=== PATIENT | female | born 1945 | race Caucasian/White ===

== ENCOUNTER 2021-01-21 15:54 | Observation (INO) | payer OTHER ==
[~2021-01-21] VITALS: Ht 180.3 cm; Wt 78.0 kg
[2021-01-21 17:10] LABS: HEMOGLOBIN 10.9 gm/dl (12.3-15.3); RED BLOOD COUNT 3.63 M/UL (4.00-5.10); WHITE BLOOD COUNT 8.8 K/UL (4.5-11.0)
[2021-01-21 17:30] LABS: BUN/CREATININE RATIO 29 (0-10)
[2021-01-22 04:13] LABS: BUN/CREATININE RATIO 17 (0-10)
[2021-01-22] MEDS ORDERED: ELIQUIS5 MG PO (10:14)
[2021-01-22] MEDS ORDERED: LOPRESSOR 50 MG50 MG PO (10:15)
[2021-01-22] MEDS ORDERED: ATORVASTATIN CA80 MG PO (10:16)
[2021-01-22] MEDS ORDERED: VITAMIN D31250 MCG PO (10:27)
[2021-01-22] MEDS ORDERED: VITAMIN B-121000 MC3 PO (10:28)
[2021-01-22] MEDS ORDERED: COLACE100 MG PO (10:28)
[2021-01-22] MEDS ORDERED: OXYCODONE HCL5 MG PO (10:29)
[2021-01-22] MEDS ORDERED: MIRALAX17 GM PO (10:29)
[2021-01-22 14:05] LABS: HEMOGLOBIN 10.1 gm/dl (12.3-15.3); RED BLOOD COUNT 3.46 M/UL (4.00-5.10); WHITE BLOOD COUNT 5.9 K/UL (4.5-11.0)
[2021-01-23 04:23] LABS: HEMOGLOBIN 9.9 gm/dl (12.3-15.3); RED BLOOD COUNT 3.47 M/UL (4.00-5.10); WHITE BLOOD COUNT 6.2 K/UL (4.5-11.0)
[2021-01-23 04:40] LABS: BUN/CREATININE RATIO 15 (0-10)
--- NOTE | 2021-01-23 05:00 | NUR ---
[facility], OKAY TO HANG PER PHARMACIST
[2021-01-23] MEDS ORDERED: BACTRIM DS TAB1 EACH PO (12:28)
[2021-01-24 07:13] LABS: HEMOGLOBIN 9.8 gm/dl (12.3-15.3); RED BLOOD COUNT 3.48 M/UL (4.00-5.10); WHITE BLOOD COUNT 5.2 K/UL (4.5-11.0)
[2021-01-24 07:41] LABS: BUN/CREATININE RATIO 10 (0-10)
--- NOTE | 2021-01-24 17:44 | NUR ---
OCTAVIO LAYTON NOTIFIED ME THAT PT HAD BEEN APPROVED FOR MOVE BACK TO [facility] IN [place]. PT AND PT WERE INFORMED. [facility] NOTIFIE AND RN GIVEN REPORT ON FLOOR 2. WAITNG FOR EMS TRANSPORT.
== END 2021-01-24 19:47 ==
LOC: ER1 15:54 → CDU 18:17 → M/S 01-22 12:46
PROVIDERS: Physician Assistant Medical; ADMIT Family Medicine
DX: T81.41XA Infection following a procedure, superficial incisional surgical site, initial encounter (principal); L03.115 Cellulitis of right lower limb; I48.19 Other persistent atrial fibrillation; I10 Essential (primary) hypertension; E87.6 Hypokalemia; D64.9 Anemia, unspecified; K21.9 Gastro-esophageal reflux disease without esophagitis; Z86.73 Personal history of transient ischemic attack (TIA), and cerebral infarction without residual deficits; Z98.890 Other specified postprocedural states; Z88.8 Allergy status to other drugs, medicaments and biological substances; Z79.01 Long term (current) use of anticoagulants; Z79.891 Long term (current) use of opiate analgesic; Z79.899 Other long term (current) drug therapy; Z20.822 Contact with and (suspected) exposure to COVID-19
CPT/HCPCS: 36415; 71045; 73502; 73552; 80048; 80053; 80202; 81001; 83735; 85025; 85027; 85652; 86140; 87040; 87070; 87077; 87086; 87186; 87205; 96374; 96375; 96376; 97110-GP-CQ; 97116-GP-CQ; 97162; 97166; 97530; 99285; G0378; J2543; J3370; J7070; U0002